=== PATIENT | male | born 1975 | race African-American/Black ===

== ENCOUNTER 2020-10-10 08:27 | Emergency (ER) | payer SELFPAY ==
[2020-10-10 08:35] VITALS: BP 132/89; PULSE 90; RESP 18; TEMP 36.8; O2SAT 100
--- NOTE | 2020-10-10 10:01 | ED.GENADULT ---
HPI - General Adult General Chief complaint: Wound/Laceration Stated complaint: WOUND EVAL X2 Time Seen by Provider: 10/10/20 09:09 Source: patient and RN notes reviewed Mode of arrival: ambulatory Limitations: no limitations History of Present Illness HPI narrative: Patient is a 44-year-old male who presents for evaluation of wounds that he sustained a week ago patient cut the right mid forearm with a knife while at work and then accidentally drilled into his left index finger at the same day. Patient notes that the wounds are beginning to heal he notes mild aching pain presents for evaluation notes his tetanus is up-to-date denies other complaints presents in no distress Related Data Allergies Allergy/AdvReac Type Severity Reaction Status Date / Time Penicillins Allergy Hives Verified 10/10/20 08:42 Review of Systems Review of Systems: All systems reviewed & are unremarkable except as noted in HPI and below PMFSH Social History Social History (Updated 10/10/20 @ 10:03 by Mauro Sampson PA-C) Smoking status: Current every day smoker Gender identity (if verbalized by the patient): Male Exam Narrative: Exam Narrative: GENERAL: Well-appearing, well-nourished, and in no acute distress. HEAD: Normocephalic, atraumatic. EYES: PERRLA and EOMI. ENT: Nares clear, no rhinorrhea or epistaxis. Mucous membranes moist. CHEST: Clear to auscultation. No respiratory distress. No wheezes rales or rhonchi HEART: Regular rate and rhythm. No murmur heard. Normal peripheral pulses. EXTREMITIES: Normal range of motion. No edema. SKIN: Warm, dry, no rash. Patient with 2 cm wound to the right forearm with central healing area with scab formation the borders are nonerythematous there is no drainage the wound is dry. Healing puncture wound to the distal palmar phalanx of the left index finger wound is not through and through there is no erythema no drainage NEURO: No focal deficits. Alert and oriented x3. Neurovascularly intact PSYCH: Normal mood and affect. Course Course Emergency Course: Patient in the room no distress aware of case findings treatment plan diagnosis wounds were evaluated dressed and clean felt appropriate for outpatient reevaluation Vital Signs Vital signs: Vital Signs Temperature 98.2 F 10/10/20 08:35 Pulse Rate 90 10/10/20 08:35 Respiratory Rate 18 10/10/20 08:35 Blood Pressure 132/89 10/10/20 08:35 Pulse Oximetry 100 10/10/20 08:35 Temperature 98.2 F 10/10/20 08:35 Pulse Rate 90 10/10/20 08:35 Respiratory Rate 18 10/10/20 08:35 Blood Pressure 132/89 10/10/20 08:35 Pulse Oximetry 100 10/10/20 08:35 Medical Decision Making MDM Narrative Medical decision making narrative: Patients injury or pain is consistent with musculoskeletal etiology. No signs of neurological or vascular compromise on exam. Compartments and tisues are soft without signs of compartment syndrome. Pain is felt appropriate for further evaluation on an outpatient basis. Vital Signs Vital Signs: Vital Signs Temperature 98.2 F 10/10/20 08:35 Pulse Rate 90 10/10/20 08:35 Respiratory Rate 18 10/10/20 08:35 Blood Pressure 132/89 10/10/20 08:35 Pulse Oximetry 100 10/10/20 08:35 Temperature 98.2 F 10/10/20 08:35 Pulse Rate 90 10/10/20 08:35 Respiratory Rate 18 10/10/20 08:35 Blood Pressure 132/89 10/10/20 08:35 Pulse Oximetry 100 10/10/20 08:35 Discharge Plan Discharge Clinical Impression: Laceration of forearm, right, Puncture wound of left index finger Patient Disposition: Home, Self-Care Condition: Stable Instructions: Antibiotic Form, Acute Wounds (DC) Additional Instructions: Follow up with primary care in the next 2-3 days to set up for reevaluation return if symptoms worsen or concerns, any increase in redness swelling pain or fever over 100.5 Clean wound with mild soapy water. Apply antibiotic ointment and clean dressing at least three times katherine
[2020-10-10 10:14] VITALS: BP 128/99; PULSE 94; RESP 16; O2SAT 100
== END 2020-10-10 10:16 | disposition home or self-care (01) ==
PROVIDERS: Emergency Provider Emergency Medicine
DX: S51.811A Laceration without foreign body of right forearm, initial encounter (principal); S61.231A Puncture wound without foreign body of left index finger without damage to nail, initial encounter; F17.200 Nicotine dependence, unspecified, uncomplicated; W26.0XXA Contact with knife, initial encounter; W29.8XXA Contact with other powered hand tools and household machinery, initial encounter
CPT/HCPCS: 99283